=== PATIENT | female | born 1980 | race Caucasian/White ===

== ENCOUNTER → 2023-01-01 | Outpatient (CLI) | payer BC ==
[~2023-01-01] MED LIST: MOTRIN 600600 MG/TAB PO; PERCOCET 325 MG1 TA2 PO; PRENATAL1 TA1 PO
== END ==
LOC: MC.RAD 14:00
DX: Z12.31 Encounter for screening mammogram for malignant neoplasm of breast (principal)

== ENCOUNTER → 2023-06-06 | Outpatient (CLI) | payer BC | LOC: COL.LAB 10:59 | DX: Z01.89 Encounter for other specified special examinations (principal) ==